=== PATIENT | male | born 2000 | race Caucasian/White ===

== ENCOUNTER 2020-07-01 08:59 | Outpatient (REF) | payer MEDICAID, SELFPAY | END 2020-07-01 09:00 | disposition home or self-care (01) | LOC: HO.LAB 08:59 | PROVIDERS: Visit Provider Internal Medicine | DX: Z20.828 Contact with and (suspected) exposure to other viral communicable diseases (principal) | CPT/HCPCS: C9803; U0003 ==

== ENCOUNTER 2020-12-27 21:18 | Emergency (ER) | payer MEDICAID, SELFPAY ==
--- NOTE | 2020-12-27 | ECG_ITS ---
Test Reason : DIZZINESS Blood Pressure : / mmHG Vent. Rate : 083 BPM Atrial Rate : 083 BPM P-R Int : 138 ms QRS Dur : 088 ms QT Int : 350 ms P-R-T Axes : 000 059 026 degrees QTc Int : 411 ms Normal sinus rhythm ST elevation, consider early repolarization, pericarditis, or injury Abnormal ECG When compared to the previous EKG of No significant changes seen Referred By: Generic ED Physician Electronically Signed By:Kali Posadas
--- NOTE | ~2020-12-27 | XR_ITS ---
EXAMINATION: XR CHEST CLINICAL INFORMATION: Chest pain COMPARISON: 07/28/2017 TECHNIQUE: Frontal view of the chest was obtained. FINDINGS: The lungs are clear with no focal consolidation. No evidence of pneumothorax, pulmonary edema, or pleural effusions. The cardiomediastinal silhouette is unremarkable. No acute osseous findings. XR/XR chest 1V IMPRESSION: No acute cardiopulmonary findings.
[2020-12-27 21:50] VITALS: BP 132/103; PULSE 100; RESP 18; TEMP 36.4; O2SAT 98; BMI 36.0
[2020-12-28 00:46] LABS: MANUAL DIFF FLAG NO
[2020-12-28 00:47] LABS: Basophils Absolute Auto 0.1 X10*3/uL (0.0-0.2); Basophils Percent Auto 0.5 % (0-2); Hematocrit 47.2 % (42-52); Hemoglobin 16.1 g/dl (14.0-18.0); Imm Gran Abs Auto 0.04 X10*3/uL (0.00-0.03); Imm Gran Pct Auto 0.3 % (0.0-0.4); Lymphocytes Absolute Auto 1.3 X10*3/uL (1.2-4.9); Lymphocytes Percent Auto 8.4 % (20-40); Mean Corpuscular HGB Conc 34.1 g/dl (31.0-36.0); Mean Corpuscular Volume 87.9 fL (80-98); Mean Platelet Volume 11.5 fL (9.4-12.4); Monocytes Absolute Auto 0.9 X10*3/uL (0.1-1.2); Neutrophils Absolute Auto 13.1 X10*3/uL (2.0-8.3); Neutrophils Percent Auto 84.8 % (45-73); Platelet Count 261 X10*3/uL (160-400); Red Blood Count 5.37 X10*6/uL (4.60-5.80); Red Cell Distribution Width 12.5 % (11.0-16.0); White Blood Count 15.4 X10*3/uL (4.8-10.8)
[2020-12-28 01:12] LABS: Anion Gap 18 (12-20); Blood Urea Nitrogen 17 mg/dL (9-16); Calcium 10.8 mg/dL (8.4-10.2); Carbon Dioxide 27 mmol/L (22-29); Chloride 95 mmol/L (96-108); Creatinine Clr Calc Pharmacy 82.6; Estimated Glomerular Filt Rate 44; Glucose Random 112 mg/dL (60-115); Potassium 4.1 mmol/L (3.3-5.1); Sodium 136 mmol/L (135-145)
[2020-12-28 01:13] LABS: Lipase 26 U/L (8-78)
[2020-12-28 01:19] LABS: Troponin-I High Sensitivity < 3.5 ng/L (<3.5-35.0)
[2020-12-28 01:33] VITALS: BP 123/65; PULSE 73; RESP 18; TEMP 37.2; O2SAT 99
[2020-12-28] MEDS: 0.9 % Sodium Chloride 1,000 ML 999 ML IV ×2 (01:47)
[2020-12-28] MEDS: ondansetron HCL 4 MG/2 ML VIAL IVPUSH (01:47)
[2020-12-28 02:05] LABS: Glucose Urine UA NEG (NEG); Leukocyte Esterase Urine NEG (NEG); Nitrite Urine NEG (NEG); Specific Gravity - Urine >= 1.030 (1.005-1.025); Urine Blood NEG (NEG); Urine Ketones 15 MG/DL (NEG); Urine Protein 2+ MG/DL (NEG-TRACE)
--- NOTE | 2020-12-28 02:11 | ED_ITS ---
HPI - Dizziness General Chief Complaint: Dizziness Stated Complaint: DIZZINESS Time Seen by Provider: 12/28/20 01:11 Source: patient Mode of arrival: ambulatory Limitations: no limitations History of Present Illness HPI Narrative: 20-year-old male who presents emergency department for evaluation of dizziness and near syncope. The patient states that he only ate breakfast in the morning and did not eat lunch or dinner. He then played 2 hours of basketball without any difficulty. He states that he was drinking water throughout the day. When he got home, he had to walk up 4 flights of stairs. He states that he got to the top of the stairs he felt dizzy and lightheaded as if he was going to pass out. He states that his vision became galo and then dark. He had nausea and vomited 4 times. He took a cold shower and felt slightly better but then is dizziness came back and got worse, therefore came to emergency department for evaluation. He states that has been experiencing cramping in his lower extremities. He denied headache, chest pain, shortness of breath, dyspnea on exertion, abdominal pain, changes bowel movements. Related Data Allergies Allergy/AdvReac Type Severity Reaction Status Date / Time No Known Allergies Allergy Verified 12/27/20 21:54 [No Known Allergies*] Review of Systems Review of Systems: Yes all other systems are reviewed and are negative [facility] Past Medical History [facility] Narrative: Past medical history: Asthma. Past surgical history: None. Social history: The patient denies tobacco, alcohol and drug use. Medical History (Updated 12/28/20 @ 03:09 by Silas Man MD) Asthma Social History Social History Advance Directives: No Advance Directives Information Provided: No Physical Exam Vital Signs: Vital Signs: Last Vital Signs Temp 98.9 F 12/28/20 01:33 Pulse 73 12/28/20 01:33 Resp 18 12/28/20 01:33 BP 123/65 12/28/20 01:33 Pulse Ox 99 12/28/20 01:33 Body Mass Index 36.0 Const: General: cooperative and healthy appearing Orientation/consciousness: oriented to person and oriented to place Limitations: no limitations HENMT: Head: Yes normal to inspection, Yes normocephalic and Yes atraumatic Ears: external ears normal General nose exam: Normal external nose present Face and sinus: Yes normal facial exam Mouth: Normal oral and palatal mucosa present Throat: Yes posterior oropharynx normal Eyes: Periorbital: periorbital findings normal Eyelids: Yes eyelids normal Conjunctivae: conjunctivae normal Sclerae: sclerae normal Corneas: corneas normal Pupils: Equal, round and reactive pupils present Direct Ophthalmoscopy: normal light reflex Neck: Neck: Yes full ROM, Yes no lymphadenopathy, Yes no meningeal signs, Yes trachea midline and Yes supple Chest: Chest palpation & inspection: normal inspection of the chest and normal palpation of entire chest wall Resp: Effort & Inspection: normal respiratory effort and able to speak in complete sentences Auscultation: clear to auscultation bilaterally Cardio: Rate: regular rate Rhythm: regular rhythm Heart sounds: S1 normal heart sound present, S2 normal heart sound present and no murmurs GI: Inspection: Yes normal to inspection Palpation (GI): Soft to palpation, nontender, no guarding, not rigid and No hepatosplenomegaly present : General: Yes no CVA tenderness Back/Spine/Pelvis: Back: no CVA tenderness Cervical Spine: normal cervical lordosis Thoracic/Lumbar Spine: thoracic and lumbar spine normal to inspection Skin: Lesions: no lesions Rashes: no rashes Wounds: no wounds Neuro: General: oriented to person, oriented to place and no meningeal signs Cranial nerves: Yes CN's II-XII intact bilaterally and Yes Equal, round and reactive pupils present Cognition (Neuro): normal cognition Motor exam (neuro): 5/5 motor strength present throughout Extrem: General: Yes normal to inspection and Yes full ROM Psych: Appearance: well kempt Mental Status: mental status grossly normal Speech and movement: Normal speech and movement present Affect: normal affect Attitude: cooperative Thought process: Normal thought process present Thought content: Normal thought content present Course Course Course Narrative: 20-year-old male who presents emergency department for evaluation of dizziness, near syncope and muscle cramping. The patient had very little food to eat throughout the day but was drinking fluids. He played 2 hours of basketball on afterwards developed dizziness with change in vision and near syncope. Initially revealed hypertension with a blood pressure of 132/103 but this improved to 120 3/65 without treatment. Vital signs were otherwise stable. Physical examination was unremarkable. Patient was ordered to get normal saline IV x2 L and Zofran 4 mg IV for his nausea and vomiting. 0217: [place] [address], BUN and creatinine were elevated at 17 and 1.95. CPK was elevated at 264. Troponin was below detectable limits. Twelve lead EKG was unremarkable. Chest x-ray was unremarkable. Patient's presentation is consistent with near syncope secondary to dehydration. The patient will be discharged home after he completes his 2 L of normal saline IV. 0306: Patient is feeling significantly better after completing 2 L of normal saline. He was given a sandwich to eat and change oral to drink . He was able to hold this down without any difficulty. The patient was discharged home. MDM - Dizziness Lab Data Result diagrams: 12/28/20 00:39 12/28/20 00:38 Labs: Lab Results 12/28/20 12/28/20 12/28/20 Range/Units 00:38 00:38 00:38 WBC (4.8-10.8) X10*3/uL RBC (4.60-5.80) X10*6/uL Hgb (14.0-18.0) g/dl Hct (42-52) % MCV (80-98) fL MCH (27.0-33.0) pg MCHC (31.0-36.0) g/dl RDW (11.0-16.0) % Plt Count (160-400) X10*3/uL MPV (9.4-12.4) fL Immature Gran % (Auto) (0.0-0.4) % Neut % (Auto) (45-73) % Lymph % (Auto) (20-40) % [place] % (Auto) (2-11) % Eos % (Auto) (0-4) % Baso % (Auto) (0-2) % Lymph # (Auto) (1.2-4.9) X10*3/uL [place] # (Auto) (0.1-1.2) X10*3/uL Eos # (Auto) (0.0-0.4) X10*3/uL Baso # (Auto) (0.0-0.2) X10*3/uL Abs Immat Gran (auto) (0.00-0.03) X10*3/uL Absolute Neuts (auto) (2.0-8.3) X10*3/uL Absolute Nucleated RBC (0.0-0.012) X10*3/uL Nucleated RBC % (auto) (0.0-0.2) /100WBC Hold Blue Top Sodium 136 (135-145) mmol/L Potassium 4.1 (3.3-5.1) mmol/L Chloride 95 L (96-108) mmol/L Carbon Dioxide 27 (22-29) mmol/L Anion Gap 18 (12-20) BUN 17 H (9-16) mg/dL Creatinine 1.95 H (0.5-1.4) mg/dL Estim Creat Clear Calc 82.6 Estimated GFR 44 Random Glucose 112 (60-115) mg/dL Calcium 10.8 H (8.4-10.2) mg/dL Total Creatine Kinase 264 H (38-174) U/L Troponin I High Sens < 3.5 (<3.5-35.0) ng/L Lipase 26 (8-78) U/L Urine Color Urine Appearance Urine pH (5.0-8.0) Ur Specific [place] (1.005-1.025) Urine Protein (NEG-TRACE) MG/DL Urine Glucose (UA) (NEG) MG/DL Urine Ketones (NEG) MG/DL Urine Blood (NEG) Urine Nitrite (NEG) Ur Leukocyte Esterase (NEG) Urine RBC (0) /HPF Urine WBC (0-4) /HPF Ur Squamous Epith Cells /LPF Calcium Oxalate Crystal /LPF Urine Bacteria /LPF Hyaline Casts /LPF Granular Casts /LPF Urine Mucus /LPF 12/28/20 12/28/20 12/28/20 Range/Units 00:39 00:39 01:53 WBC 15.4 H (4.8-10.8) X10*3/uL RBC 5.37 (4.60-5.80) X10*6/uL Hgb 16.1 (14.0-18.0) g/dl Hct 47.2 (42-52) % MCV 87.9 (80-98) fL MCH 30.0 (27.0-33.0) pg MCHC 34.1 (31.0-36.0) g/dl RDW 12.5 (11.0-16.0) % Plt Count 261 (160-400) X10*3/uL MPV 11.5 (9.4-12.4) fL Immature Gran % (Auto) 0.3 (0.0-0.4) % Neut % (Auto) 84.8 H (45-73) % Lymph % (Auto) 8.4 L (20-40) % [place] % (Auto) 6.0 (2-11) % Eos % (Auto) 0.0 (0-4) % Baso % (Auto) 0.5 (0-2) % Lymph # (Auto) 1.3 (1.2-4.9) X10*3/uL [place] # (Auto) 0.9 (0.1-1.2) X10*3/uL Eos # (Auto) 0.0 (0.0-0.4) X10*3/uL Baso # (Auto) 0.1 (0.0-0.2) X10*3/uL Abs Immat Gran (auto) 0.04 H (0.00-0.03) X10*3/uL Absolute Neuts (auto) 13.1 H (2.0-8.3) X10*3/uL Absolute Nucleated RBC 0.000 (0.0-0.012) X10*3/uL Nucleated RBC % (auto) 0.0 (0.0-0.2) /100WBC Hold Blue Top SEE NOTE Sodium (135-145) mmol/L Potassium (3.3-5.1) mmol/L Chloride (96-108) mmol/L Carbon Dioxide (22-29) mmol/L Anion Gap (12-20) BUN (9-16) mg/dL Creatinine (0.5-1.4) mg/dL Estim Creat Clear Calc Estimated GFR Random Glucose (60-115) mg/dL Calcium (8.4-10.2) mg/dL Total Creatine Kinase (38-174) U/L Troponin I High Sens (<3.5-35.0) ng/L Lipase (8-78) U/L Urine Color YELLOW Urine Appearance HAZY Urine pH 6.0 (5.0-8.0) Ur Specific [place] >= 1.030 H (1.005-1.025) Urine Protein 2+ H (NEG-TRACE) MG/DL Urine Glucose (UA) NEG (NEG) MG/DL Urine Ketones 15 (NEG) MG/DL Urine Blood NEG (NEG) Urine Nitrite NEG (NEG) Ur Leukocyte Esterase NEG (NEG) Urine RBC 1-4 (0) /HPF Urine WBC 5-9 H (0-4) /HPF Ur Squamous Epith Cells 2+ /LPF Calcium Oxalate Crystal 3+ /LPF Urine Bacteria 2+ /LPF Hyaline Casts 15-29 /LPF Granular Casts 5-9 /LPF Urine Mucus 2+ /LPF Discharge Plan Discharge Clinical Impression: Near syncope, Acute dehydration Patient Disposition: Home, Self-Care Instructions: Near Syncope (ED), Dehydration (ED) Additional Instructions: Your symptoms were caused by not eating enough food throughout the day, not drinking enough fluid throughout the day and exercising very hard. You should make sure that you eat 3 meals a day and that you drink plenty of fluid prior to exercising. Follow-up with your doctor in 2 days. Please return to the emergency department if your symptoms get worse or if you develop any symptoms that are concerning to you.
[2020-12-28 02:13] LABS: Appearance Urine HAZY; Color Urine YELLOW
[2020-12-28 02:14] LABS: Bacteria Urine 2+ /LPF; Calcium Oxalate Crystals Urine 3+ /LPF; Mucus Urine 2+ /LPF; Squamous Epithelial Cell Urine 2+ /LPF
== END 2020-12-28 03:37 | disposition home or self-care (01) ==
PROVIDERS: Emergency Provider Emergency Medicine Emergency Medical Services
DX: R55 Syncope and collapse (principal); E86.0 Dehydration; R11.2 Nausea with vomiting, unspecified
CPT/HCPCS: 36415; 71045; 80048; 81001; 82550; 83690; 84484; 85025; 93005; 96361; 96374; 99284; J2405

== ENCOUNTER 2021-07-18 09:44 | Outpatient (REF) | payer MEDICAID, SELFPAY ==
[2021-07-18 10:18] LABS: COVID-19 Test Positive (Negative); IDNOW Serial# 16C4AD1C
== END 2021-07-18 09:45 | disposition home or self-care (01) ==
LOC: HO.LAB 09:44
PROVIDERS: Visit Provider Internal Medicine
DX: Z20.822 Contact with and (suspected) exposure to COVID-19 (principal)
CPT/HCPCS: 36415; 87635; C9803

== ENCOUNTER 2023-03-11 20:17 | Emergency (ER) | payer OTHER, SELFPAY ==
--- NOTE | ~2023-03-11 | XR_ITS ---
EXAMINATION: LEFT ANKLE, LEFT FOOT CLINICAL INFORMATION: Twisted ankle and foot with pain COMPARISON: None available. TECHNIQUE: 3 views ankle, 3 views foot FINDINGS: The ankle mortise appears stable. No ankle fracture or dislocation is seen. Imaging of the foot shows no evidence of an acute fracture or dislocation. Tiny corticated bony density seen at the tip of the medial malleolus best imaged on the foot radiograph along with another bony density seen superiorly on the talus. XR/XR ankle LT min 3V IMPRESSION: No evidence of an acute injury. Incidental findings described above.
--- NOTE | ~2023-03-11 | XR_ITS ---
EXAMINATION: LEFT ANKLE, LEFT FOOT CLINICAL INFORMATION: Twisted ankle and foot with pain COMPARISON: None available. TECHNIQUE: 3 views ankle, 3 views foot FINDINGS: The ankle mortise appears stable. No ankle fracture or dislocation is seen. Imaging of the foot shows no evidence of an acute fracture or dislocation. Tiny corticated bony density seen at the tip of the medial malleolus best imaged on the foot radiograph along with another bony density seen superiorly on the talus. XR/XR foot LT min 3V IMPRESSION: No evidence of an acute injury. Incidental findings described above.
[2023-03-11 20:22] VITALS: BP 113/77; PULSE 107; RESP 18; TEMP 36.6; O2SAT 97; BMI 35.9
--- NOTE | 2023-03-11 20:23 | ED_ITS ---
HPI - Extremity Injury (Lower) General Chief Complaint: Extremity Injury, Lower Stated Complaint: left ankle pain work inj Time Seen by Provider: 03/11/23 20:40 Source: patient Mode of arrival: ambulatory History of Present Illness HPI Narrative: 22-year-old male presents with left ankle pain after he reports injuring it approximately 1 week ago playing basketball and then twisted it at work again today when he tripped over something while unloading a Pallet. Patient states he is able to bear weight. Related Data Allergies Allergy/AdvReac Type Severity Reaction Status Date / Time No Known Allergies Allergy Verified 03/11/23 20:26 [No Known Allergies*] Review of Systems Review of Systems: Pertinent positives and negatives as stated in HPI PMFSH Past Medical History Source: nursing notes reviewed Medical History Asthma Social History Social History Advance Directives: No Advance Directives Information Provided: Yes Physical Exam Vital Signs: Vital Signs: Last Vital Signs Temp 98.2 F 03/11/23 20:51 Pulse 90 03/11/23 20:51 Resp 16 03/11/23 20:51 BP 130/85 03/11/23 20:51 Pulse Ox 98 03/11/23 20:51 O2 Del Method Room Air 03/11/23 20:51 BMI result Body Mass Index 35.9 VITAL SIGNS: Reviewed. GENERAL: Well developed, well nourished, in no acute distress. HEAD: Normocephalic/atraumatic EYES: PERRLA, EOMI LUNGS: Normal breath sounds. No adventitious sounds or accessory muscle use. CARDIOVASCULAR: Regular rate and rhythm without noted murmurs ABDOMEN: Soft, non-tender, non-distended with bowel sounds. MUSCULOSKELETAL: No tenderness, deformities, or effusions noted on gross inspection. EXTREMITIES: No cyanosis, clubbing or edema. LEFT ANKLE: There is mild swelling to the anteromedial aspect of the left ankle, foot is warm there is good capillary refill and palpable DP/PT. There is no obvious deformity, no midfoot tenderness and full range of motion toes. SKIN: Inspection of the skin reveals no rashes NEUROLOGIC: Alert and oriented x 4. Strength and sensation to light touch were grossly intact x 4. Course Course Course Narrative: RME: 22yo M w/no sig PMHx c/o L ankle pain s/p twisting at work today. Admits was packing pallet and tripped. Also reports twisting this weekend playing basketball L proximal foot/ankle swelling & ttp >lateral mall. NV intact XRs ordered Full HPI, ROS and PE to be performed by primary ED provider. Medical Decision Making Medical Decision Making MDM Narrative: 22-year-old male with history and clinical presentation most consistent with sprain, mild in nature, I have low clinical suspicion for fracture or dislocation which was further corroborated by imaging studies of the left lower extremity which was negative for fracture or dislocation otherwise my interpretation is in agreement with radiology's impression. Place an Cory wrap on patient's ankle and discharged him home. Differential Diagnosis Differential Diagnoses: The differential diagnosis associated with the presentation includes Please see the discussion above Radiology Impression Discussion of test interpretation with radiology: I have reviewed the radi ologist's reading. Radiologist Impression: Please see the discussion above Discharge Plan Discharge Clinical Impression: Ankle sprain Patient Disposition: Home, Self-Care Instructions: Ankle Sprain (ED), How to Use an Elastic Bandage (ED), R.I.C.E. Treatment (ED) Additional Instructions: 1. Recommend Tylenol and ibuprofen as needed for pain control. 2. Recommend ice for 10-15 minutes, apply to unexposed skin, 3 to 4 times a day as possible. 3. Leave the Cory wrap in place while walking. 4. Follow-up with your primary care provider in the next 1-2 days Return to the ER for any worsening symptoms. Referrals: Elise Milian MD [Primary Care Provider] -
[2023-03-11 20:51] VITALS: BP 130/85; PULSE 90; RESP 16; TEMP 36.8; O2SAT 98
--- NOTE | 2023-03-11 21:20 | MHC.EDTECH ---
OSCAR WRAP APPLE TO LEFT ANKLE .
== END 2023-03-11 21:52 | disposition home or self-care (01) ==
PROVIDERS: Emergency Provider Student in an Organized Health Care Education/Training Program; PCP Internal Medicine
DX: S93.402A Sprain of unspecified ligament of left ankle, initial encounter (principal); X50.1XXA Overexertion from prolonged static or awkward postures, initial encounter; Y93.89 Activity, other specified; Y92.9 Unspecified place or not applicable; Y99.0 Civilian activity done for income or pay
CPT/HCPCS: 73610; 73630; 99283

== ENCOUNTER 2023-06-12 11:24 | Outpatient (AMB) | payer OTHER, SELFPAY ==
--- NOTE | 2023-06-12 11:28 | MHC.OFFWIV ---
Intake Vital Signs 06/12/23 11:29 Height 6 ft 2 in Weight 130.181 kg BMI 36.8 BP 128/68 Blood Pressure Location Lt brachial Position Sitting Pulse 78 Pulse Source Pulse Oximeter Temp 97.8 F Temp Source Temporal Artery Scan Pulse Oximetry (%) 97 Oxygen Delivery Method Room Air Intake Visit Reasons: EP, sleep apnea, tiredness Intake Note: pt is here for c/o sleep apnea and tiredness Patient Tobacco Use Status: Never used Tobacco Allergies No Known Allergies [No Known Allergies*] Allergy (Verified 06/12/23 11:29) Do you need a note to return to daycare/school/sports/work: Yes HPI HPI Comments History of Present Illness Details 1143 22-year-old male history of obesity presents to the Urgent Care requesting treatment /screening for sleep apnea, patient does not have a PCP at this time. Reports this has been going on for years. No acute complaints today. No chest pain, shortness of breath, fevers, chills, cough. Physical exam benign. Likely sleep apnea secondary to obesity. Unlikely acute viral illness, pulmonary embolism, ACS. Patient was set up with an appointment with a primary care provider Beto this Saturday. Plan- dc w/ pcp follow up Nothing to be done about this in an acute setting and in urgent care. Patient to follow-up with PCP. Hemodynamically stable. Saturating well on room air. No respiratory complaints. Educated patient on diagnosis and treatment plan, answered all question, patient verbalizes understanding. At this time patient will be discharged home, advised to return with new or worsening symptoms. Educated on worrisome signs and symptoms and when to return. At this time I feel comfortable discharge home. [facility] Medical History Asthma Social History Patient Tobacco Use Status: Never used Tobacco Review of Systems Const Details: Constitutional : No Weight loss, No Fever, No Chills, No Fatigue, No Malaise ENT/Mouth : No sore throat, No Rhinorrhea Eyes: No Eye Pain, No Swelling, No Redness Cardiovascular : No Chest Pain, No SOB, No Dyspnea on Exertion, No Orthopnea, No Edema, No Palpitations Respiratory : No Cough, No Sputum, No Wheezing Gastrointestinal : No Nausea, No Vomiting, No Diarrhea, No Constipation, No abdominal Pain, No Hematochezia, No Melena Genitourinary : No Dysuria, No Urinary Frequency, No Hematuria, Musculoskeletal : No joint pain, No Myalgias, No Joint Swelling Skin : No Skin Lesions, No rash Neuro : No Weakness, No Numbness, No Dizziness, No Headache Psych : No Anxiety/Panic, No Depressio All other systems reviewed and are negative All systems reviewed & are unremarkable except as noted in HPI and below Physical Exam Vital Signs: Last Vital Signs Temp 97.8 F 06/12/23 11:29 Pulse 78 06/12/23 11:29 BP 128/68 06/12/23 11:29 Pulse Ox 97 06/12/23 11:29 Oxygen Delivery Method Room Air 06/12/23 11:29 BMI result Body Mass Index 36.8 vss Appearance: Alert.? Oriented X3.? No acute distress.? Head: Normocephalic, atraumatic, no step-offs or deformities Eyes: Pupils equal, round and reactive to light.? ENT: Pharynx normal.? Neck: Normal inspection.? Neck supple.? CVS: Normal heart rate and rhythm.? Pulses normal.? Respiratory: No respiratory distress.? Breath sounds normal.? Abdomen: Soft and nontender.? Skin: Skin warm and dry.? Normal skin color.? Normal skin turgor.? Extremities: No lower extremity edema.? No calf ttp. 5/5 strength to bilateral upper and lower extremities Neuro: Oriented X 3.? No motor deficit.? No sensory deficit. CN 2-12 intact Assessment & Plan Assessment & Plan (1) Obesity: Code(s): E66.9 - Obesity, unspecified Plan Take your medications as prescribed. If you were prescribed antibiotics today, it is important that you take your medication to their entirety, do not skip any doses, do not finish them early. Follow-up with your primary care provider this week. Return to the emergency department with new or worsening symptoms. Such as fevers, chills, chest pain, shortness of breath, nausea, vomiting, dizziness, headache, vision changes, lethargy In case of emergency call 911 Coding Level of Care Code Est Pt Level 3 (90055) Diagnoses Obesity E66.9
[2023-06-12 11:29] VITALS: BP 128/68; PULSE 78; TEMP 36.6; O2SAT 97; BMI 36.8
== END 2023-06-12 12:15 | disposition home or self-care (01) ==
PROVIDERS: PCP Nurse Practitioner Primary Care; Visit Provider Physician Assistant
DX: E66.9 Obesity, unspecified (principal); Z68.36 Body mass index [BMI] 36.0-36.9, adult
CPT/HCPCS: 99213

== ENCOUNTER 2023-06-14 12:24 | Outpatient (AMB) | payer OTHER, SELFPAY ==
--- NOTE | 2023-06-14 12:27 | A.OFFPC_ITS ---
Vital Signs 06/14/23 12:29 06/14/23 12:38 Height 6 ft 2 in Weight 289 lb BMI 37.1 BP 122/66 Blood Pressure Location Rt brachial Position Sitting Pulse 107 H 90 Pulse Source Pulse Oximeter Palpation Pulse Oximetry (%) 97 Oxygen Delivery Method Room Air Intake Visit Reasons: Est Care/Request Annual PE Intake Note: Pt is here today to est care/PE Allergies No Known Allergies [No Known Allergies*] Allergy (Verified 06/14/23 12:27) Medication List - Last Reconciled 06/14/23 by HETAL Hunter No Known Home Meds Tobacco use date assessed: 06/14/23 Dental Screening Dental Screen Date: 06/14/23 Did you have a dental visit in the last 12 months?: No Was dental information given to patient?: Patient has dentist HPI HPI Comments History of Present Illness Details The patient is a 22-year-old male here to establish care, and have a physical exam. He has a chief complaint of feeling tired in the morning. His girlfriend was present during the exam and states that he sleeps very restlessly, and it appears as though he is trying to catch his breath at times. He has a past medical history significant for childhood asthma. He currently has a BMI of 37.1. No other complaints were offered at this time. [facility] Medical History (Updated 06/14/23 @ 13:17 by HETAL Hunter) Nocturnal cough with wheeze Encounter for routine adult physical exam with abnormal findings Asthma Family History (Updated 06/14/23 @ 12:44 by HETAL Hunter) Father Diabetes type 2, controlled Mother Diabetes type 2, controlled Social History Housing: Apartment Patient Tobacco Use Status: Current everyday Tobacco user e-Cigarette/Vaping Use: Never Used service: No Current occupational status: unemployed Cognitive needs: No Hearing needs: No Vision needs: No Questionnaire Thrive Questionnaire Date Thrive assessed: 06/14/23 I am a: Patient What is your living situation today?: I have a steady place to live Within the past 12 months, did the food you bought not last and you didn't have the money to get more?: Never true Within the past 12 months, did you worry whether your food would run out before you got money to buy more?: Never true Do you have trouble paying for medicines?: No Do you have trouble getting transportation to medical appointments?: No Do you have trouble paying your heating and electricity bill?: Yes Do you have trouble taking care of your child, family member or friend?: No Do you have trouble with day-to-day activities such as bathing, preparing meals, shopping, managing finances, etc.?: No Are you currently unemployed and looking for a job?: Yes Are you interested in more education?: No Please select the resources that you would like help with: None Currently or been in a relationship where the following occur: no concerns reported AUDIT C Alcohol Use Questionnaire (AUDIT-C) 1. How often do you have a drink containing alcohol?: Never Total Score: 0 SANDIE-7 AMB Questionnaire SANDIE-7 Date SANDIE - 7 assessed: 06/14/23 Feeling nervous, anxious, or on edge: 1 = Several days Not being able to stop or control worryin = More than half the days Worrying too much about different things: 3 = Nearly every day Trouble relaxin = More than half the days Being so restless that it is hard to sit still: 3 = Nearly every day Becoming easily annoyed or irritable: 2 = More than half the days Feeling afraid as if something awful might happen: 3 = Nearly every day Total SANDIE-7 score (0-4 normal; 5-9 mild; 10-14 moderate; 15-21 severe): 16 Source: Developed by Drs. Tom Bae, Justa Maza, Jatin Willis and colleagues, with an educational ben from [employer]. SANDIE-7 Assessment Billing SANDIE-7 Assessment Tool: SANDIE-7 Assessment 12676 Review of Systems Const Details: Constitutional : No Weight loss, No Fever, No Chills, No Fatigue, No malaise. Admits feeling tired in the mornings even after good sleep. ENT/Mouth : No sore throat, No Rhinorrhea Eyes: No Eye Pain, No Swelling, No Redness Cardiovascular : No Chest Pain, No SOB, No Dyspnea on Exertion, No Orthopnea, No Edema, No Palpitations Respiratory : No Cough, No Sputum, No Wheezing Gastrointestinal : No Nausea, No Vomiting, No Diarrhea, No Constipation, No abdominal Pain, No Hematochezia, No Melena Genitourinary : No Dysuria, No Urinary Frequency, No Hematuria, Musculoskeletal : No joint pain, No Myalgias, No Joint Swelling Skin : No Skin Lesions, No rash Neuro : No Weakness, No Numbness, No Dizziness, No Headache Psych : No Anxiety/Panic, No Depression Heme/Lymph: No Bruising, No Bleeding,No Lymphadenopathy Endocrine : No Polyuria, No Polydipsia All other systems reviewed and are negative All systems reviewed & are unremarkable except as noted in HPI and below Physical exam (Primary Care) Vital Signs: Last Vital Signs Pulse 90 06/14/23 12:38 BP 122/66 06/14/23 12:29 Pulse Ox 97 06/14/23 12:29 Oxygen Delivery Method Room Air 06/14/23 12:29 Care Plan Goal for BP management: Patient's vital signs have been reviewed and are stable. BMI result Body Mass Index 37.1 Discussed with patient, given that both biological parents have diabetes type 2, is imperative that he improving focus on his diet. BMI Assessment/Plan discussion: High BMI High, discussed plan: lifestyle, dietary and physical activity Tobacco/Smoking Status: Tobacco use Status Tobacco use date assessed 06/14/23 06/14/23 12:34 Patient Tobacco Use Status Current everyday Tobacco 06/14/23 12:34 e-Cigarette/Vaping Use Never Used 06/14/23 12:34 Are you ready to quit: No Tobacco cessation counseling provided: No Currently or been in a relationship where the following occur: no concerns reported Const Other: Appearance: Alert.? Oriented X3.? No acute distress.? Head: Normocephalic, atraumatic, no step-offs or deformities Eyes: Pupils equal, round and reactive to light.? ENT: Pharynx normal. Clear Nasal Discharge. TM Visible, intact and pearly galo. ? Neck: Normal inspection.? Neck supple. No Lymphadenopahty. ? CVS: Normal heart rate and rhythm.? Pulses normal.? Respiratory: No respiratory distress.? Breath sounds normal.? Abdomen: Soft and nontender.? Skin: Skin warm and dry.? Normal skin color.? Normal skin turgor.? Extremities: No lower extremity edema.? No calf ttp. 5/5 strength to bilateral upper and lower extremities Back: No midline tenderness, no C-spine tenderness, full range of motion, no CVA tenderness bilaterally Neuro: Oriented X 3.? No motor deficit.? No sensory deficit. CN 2-12 intact General: cooperative Nutritional Appearance: overweight Limitations: no limitations Results Reviewed Results Reviewed: Will order labs in review with patient. Assessment and Plan Assessment & Plan (1) Encounter for routine adult physical exam with abnormal findings: Comment: Patient will have labs drawn today which will include CBC, CMP, lipid profile, TSH, T4, UA. Will follow-up with patient with results. Patient will follow-up in 1 year. Code(s): Z00. - Encounter for general adult medical examination with abnormal findings (2) Nocturnal cough with wheeze: Comment: Will order referral for sleep medicine, to be evaluated for obstructive sleep apnea, given the patient's history of childhood asthma, behaviors while sleeping, and elevated BMI. The patient will also be sent for pulmonary function test with methacholine challenge. Will prescribe albuterol inhaler to be taken as directed and as needed, will prescribe Flonase. Code(s): R05.8 - Other specified cough; R06.2 - Wheezing Orders: Orders PFT pulmonary function test Today R05.8 - Other specified cough, R06.2 - Wheezing Comprehensive Met. Panel Today Z00. - Encounter for general adult medical examination with abnormal findings TSH reflex Free T4 Today Z00.01 - Encounter for general adult medical examina tion with abnormal findings RT pft w methacholine Today R05.8 - Other specified cough, R06.2 - Wheezing Complete Blood Count Auto Diff Today Z00.01 - Encounter for general adult medical examination with abnormal findings UA CC w/rflx Micro + Cult Today Z00.01 - Encounter for general adult medical examination with abnormal findings Lipid Panel Today Z00.01 - Encounter for general adult medical examination with abnormal findings Referrals Sleep Medicine Referral R05.8 - Other specified cough, R06.2 - Wheezing Medications: New albuterol sulfate 90 mcg/actuation 2 puffs inhalation Q6H PRN 8.5 grams 0RF shortness of breath or wheezing fluticasone propionate 50 mcg/actuation (Flonase Allergy Relief) administer into each nostril 2 sprays intranasal DAILY 16 grams 0RF Review Flu Vaccine not done: patient reason Coding Level of Care Code New Pt Prev Care 18-39yr(51780 Diagnoses Encounter for routine adult physical exam with abnormal findings Z00.01 Nocturnal cough with wheeze R05.8; R06.2 Additional Codes SANDIE-7 Assessment Billing - SANDIE-7 Assessment Tool: SANDIE-7 Assessment 25797 ([id number]) Time Spent (min) 30
[2023-06-14 12:29] VITALS: BP 122/66; PULSE 107; O2SAT 97; BMI 37.1
[2023-06-14 12:38] VITALS: PULSE 90
== END 2023-06-14 13:52 | disposition home or self-care (01) ==
PROVIDERS: PCP Nurse Practitioner Primary Care; Visit Provider Nurse Practitioner Primary Care
DX: Z00.01 Encounter for general adult medical examination with abnormal findings (principal); R05.8 Other specified cough; R06.2 Wheezing
CPT/HCPCS: 99213; 99395

== ENCOUNTER 2023-06-24 10:10 | Outpatient (REF) | payer OTHER, SELFPAY ==
[2023-06-24 10:41] LABS: MANUAL DIFF FLAG NO
[2023-06-24 11:06] LABS: Basophils Absolute Auto 0.1 X10*3/uL (0.0-0.2); Basophils Percent Auto 0.7 % (0-2); Eosinophils Absolute Auto 0.2 X10*3/uL (0.0-0.4); Eosinophils Percent Auto 2.6 % (0-4); Hematocrit 47.1 % (42.0-52.0); Hemoglobin 15.3 g/dl (14.0-18.0); Imm Gran Abs Auto 0.02 X10*3/uL (0.00-0.03); Imm Gran Pct Auto 0.2 % (0.0-0.4); Lymphocytes Absolute Auto 2.6 X10*3/uL (1.2-4.9); Lymphocytes Percent Auto 30.6 % (20-40); Mean Corpuscular HGB Conc 32.5 g/dl (31.0-36.0); Mean Corpuscular Hemoglobin 29.5 pg (27.0-33.0); Mean Corpuscular Volume 90.9 fL (80.0-98.0); Mean Platelet Volume 11.4 fL (9.4-12.4); Monocytes Absolute Auto 0.6 X10*3/uL (0.1-1.2); Monocytes Percent Auto 6.6 % (2-11); Neutrophils Percent Auto 59.3 % (45-73); Platelet Count 233 X10*3/uL (160-400); Red Blood Count 5.18 X10*6/uL (4.60-5.80); Red Cell Distribution Width 13.2 % (11.0-16.0); White Blood Count 8.4 X10*3/uL (4.8-10.8)
[2023-06-24 11:39] LABS: Alanine Aminotransferase 38 U/L (0-40); Albumin Level 4.1 g/dL (3.5-5.0); Alkaline Phosphatase 71 U/L (39-117); Anion Gap 10 (12-20); Aspartate Amino Transferase 23 U/L (5-37); Bilirubin Total 0.3 mg/dL (0.0-1.0); Blood Urea Nitrogen 10 mg/dL (9-16); Calcium 9.4 mg/dL (8.4-10.2); Carbon Dioxide 31 mmol/L (22-29); Chloride 101 mmol/L (96-108); Cholesterol 141 mg/dL (<200); Estimated Glomerular Filt Rate > 60; Glucose Random 103 mg/dL (60-115); HDL Cholesterol 31 mg/dL (>40); LDL Cholesterol Calculated 80 mg/dL (<100); Sodium 138 mmol/L (135-145); Triglycerides 154 mg/dL (<150)
[2023-06-24 11:47] LABS: Appearance Urine Cloudy; Color Urine Yellow; Glucose Urine UA Negative (Negative); Leukocyte Esterase Urine Negative (Negative); Nitrite Urine Negative (Negative); Urine Blood Negative (Negative); Urine Ketones Negative (Negative); Urine Protein Negative (Neg-Trace)
[2023-06-24 11:57] LABS: TSH reflex Free T4 1.62 uIU/mL (0.32-4.0)
== END 2023-06-24 10:11 | disposition home or self-care (01) ==
LOC: HO.LAB 10:10
PROVIDERS: PCP Nurse Practitioner Primary Care; Visit Provider Nurse Practitioner Primary Care
DX: Z00.01 Encounter for general adult medical examination with abnormal findings (principal)
CPT/HCPCS: 36415; 80053; 80061; 81003; 84443; 85025

== ENCOUNTER 2023-06-26 10:49 | Outpatient (AMB) | payer OTHER, SELFPAY ==
--- NOTE | 2023-06-26 10:55 | A.OFFVIS_ITS ---
Intake Vital Signs 06/26/23 10:59 Height 6 ft 2 in Weight 287 lb BMI 36.8 BP 120/82 Blood Pressure Location Lt brachial Position Sitting Pulse 95 Pulse Source Pulse Oximeter Pulse Oximetry (%) 95 Oxygen Delivery Method Room Air Intake Visit Reasons: INP-Cough/Wheezing/Sleep-Confirmed [employer] Operations Supervisor Required: No Allergies No Known Allergies [No Known Allergies*] Allergy (Verified 06/26/23 10:58) HPI HPI Comments History of Present Illness Details 22 y/o male patient presents for new in- person visit to manage sleep apnea. He was diagnosed with severe degree of sleep apnea, about 3-4 years ago. He was told that he is getting CPAP but he never had a CPAP. He gained 40-50 lb since the last sleep study. He sleeps at least 8 hrs, but he feels he did not sleep at all. Pt has non refreshing sleep with daytime sleepiness, takes a 3 hrs nap daily. He snores, wakes up with gasping and heart burn. He feels chocking, and needs to drink water, too. He smokes marijuana daily. Sleep questionnaire: Have you ever been diagnosed with a sleep disorder? Yes, severe degree of sleep apnea. Have you ever had a sleep study in the past? Yes. Have you ever been treated for a sleep disorder? No. Do you take medications for a sleep disorder? No. Do you snore? Yes. Do you wake up gasping at night? Yes. Do you have episodes of apneas? Yes. If yes, are they witnessed? Yes. Do you have episodes of nocturnal chest pain or dyspnea? Yes. Do you have difficulty initiating sleep? No. Do you have difficulty maintaining sleep? No. Do you wake up tired? Yes. Do you have headaches upon awakening? Yes. Do you wake up with dry mouth or throat? Yes. Do you have GERD? Yes. Do you have nocturia? Yes. Do you have nocturnal leg cramps? No. Do you have symptoms of restless legs? No. Do you act out your dreams? No. Sleep hygiene questionnaire: What is your usual sleep routine? Usual bedtime is at 10 pm; Usual wake up time is at 8 am. Do you take naps? Yes, daily, three hours. Is your sleep environment cool, dark, and quiet? Yes. Do you exercise? No. Do you take caffeine or other stimulants? Coffee and soda. Do you use electronics in bed? Yes. What is your work schedule? N/A. Hypersomnolence questionnaire: Do you have daytime tiredness or fatigue? Yes. Do you easily fall asleep when inactive? Yes. Have you ever had episodes of sudden weakness? No. Have you ever had episodes of sudden weakness associated with strong emotions? No. PFSH Medical History (Updated 06/26/23 @ 11:17 by Darrel Shay CNP) Nocturnal cough with wheeze Encounter for routine adult physical exam with abnormal findings Asthma Family History (Updated 06/14/23 @ 12:44 by HETAL Hunter) Father Diabetes type 2, controlled Mother Diabetes type 2, controlled Social History (Updated 06/26/23 @ 10:59 by Chula Bueno [facility]) Housing: Apartment Alcohol intake: never Patient Tobacco Use Status: Current everyday Tobacco user e-Cigarette/Vaping Use: Never Used Substance Use Type: Marijuana service: No Current occupational status: unemployed Cognitive needs: No Hearing needs: No Vision needs: No Review of Systems Const All systems reviewed & are unremarkable except as noted in HPI and below ENT Reports Normal hearing present Neuro Reports Normal hearing present Physical Exam Vital Signs: Last Vital Signs Pulse 95 06/26/23 10:59 BP 120/82 06/26/23 10:59 Pulse Ox 95 06/26/23 10:59 Oxygen Delivery Method Room Air 06/26/23 10:59 Const General: cooperative and tired appearing Nutritional Appearance: obese Orientation/consciousness: patient oriented x3 Neck Neck: Yes full ROM and Yes supple Resp Effort & Inspection: normal respiratory effort and able to speak in complete sentences Neuro General: patient oriented x3, gait normal and moves all extremities Cranial nerves: Yes Bilaterally intact EOM present, Yes Normal facial strength present, Yes Midline tongue present, Yes Normal hearing present, Yes Ability to bilaterally rotate head present and Yes Ability to bilaterally elevate shoulders present Cognition (Neuro): normal cognition Gait exam (Neuro): Normal gait present Motor exam (neuro): 5/5 motor strength present throughout, Pronator motor function not present and no tremor noted Psych Appearance: grossly normal Mental Status: mental status grossly normal Speech and movement: Normal speech and movement present Affect: normal affect Attitude: cooperative Assessment & Plan Assessment & Plan (1) Obesity: Code(s): E66.9 - Obesity, unspecified (2) Excessive daytime sleepiness: Code(s): G47.19 - Other hypersomnia (3) Sleep apnea: Comment: hx of severe degree of sleep apnea. Code(s): G47.30 - Sleep apnea, unspecified (4) Nocturnal cough with wheeze: Comment: Will order referral for sleep medicine, to be evaluated for obstructive sleep apnea, given the patient's history of childhood asthma, behaviors while sleeping, and elevated BMI. The patient will also be sent for pulmonary function test with methacholine challenge. Will prescribe albuterol inhaler to be taken as directed and as needed, will prescribe Flonase. Code(s): R05.8 - Other specified cough; R06.2 - Wheezing Plan Pt is advised to undergo in lab sleep study to assess for sleep apnea and titration study if he needs it. Will f/u with pt after study to discuss results and appropriate treatment options. Wt reduction advised. Advised patient to reduce mariuana smoking. Sleep hygiene education provided. Pt to call with any worsening concerns or questions. Orders: Orders RT PSG in-lab sleep titration Today E66.9 - Obesity, unspecified, G47.19 - Other hypersomnia, G47.30 - Sleep apnea, unspecified, R05.8 - Other specified cough, R06.2 - Wheezing Coding Level of Care Code New Pt Level 3 (99529) Diagnoses Obesity E66.9 Excessive daytime sleepiness G47.19 Sleep apnea G47.30 Nocturnal cough with wheeze R05.8; R06.2
[2023-06-26 10:59] VITALS: BP 120/82; PULSE 95; O2SAT 95; BMI 36.8
== END 2023-06-26 11:20 | disposition home or self-care (01) ==
PROVIDERS: PCP Nurse Practitioner Primary Care; Visit Provider Nurse Practitioner Family
DX: E66.9 Obesity, unspecified (principal); G47.19 Other hypersomnia; G47.30 Sleep apnea, unspecified; R05.8 Other specified cough; R06.2 Wheezing
CPT/HCPCS: 99203

== ENCOUNTER → 2023-06-26 10:49 | Outpatient (BNVA) | payer OTHER, SELFPAY | PROVIDERS: PCP Nurse Practitioner Primary Care; Visit Provider Nurse Practitioner Family | DX: G47.19 Other hypersomnia (principal); G47.30 Sleep apnea, unspecified; R05.8 Other specified cough; R06.2 Wheezing; E66.9 Obesity, unspecified; Z68.36 Body mass index [BMI] 36.0-36.9, adult | CPT/HCPCS: 99202 ==

== ENCOUNTER → 2023-07-24 20:30 | Outpatient (REF) | payer OTHER, SELFPAY | LOC: HO.SL 20:30 | PROVIDERS: PCP Nurse Practitioner Primary Care; Visit Provider Nurse Practitioner Family | DX: G47.33 Obstructive sleep apnea (adult) (pediatric) (principal); R05.8 Other specified cough; R06.2 Wheezing; G47.19 Other hypersomnia; E66.9 Obesity, unspecified | CPT/HCPCS: 95811 ==

== ENCOUNTER → 2023-07-24 23:40 | Outpatient (BNV) | payer OTHER, SELFPAY | PROVIDERS: PCP Nurse Practitioner Primary Care; Visit Provider Psychiatry & Neurology Neurology | DX: G47.33 Obstructive sleep apnea (adult) (pediatric) (principal) | CPT/HCPCS: 95811 ==

== ENCOUNTER 2023-10-07 12:18 | Emergency (ER) | payer OTHER, SELFPAY ==
--- NOTE | ~2023-10-07 | US_ITS ---
EXAMINATION: US ABDOMEN LIMITED CLINICAL INFORMATION: Epigastric pain. COMPARISON: None available. TECHNIQUE: Real-time imaging of the right upper quadrant abdominal viscera. FINDINGS: PANCREAS: Tail obscured. LIVER: The liver is normal in size. The liver contour is normal. There is diffuse increased liver parenchymal echogenicity, consistent with hepatic steatosis. No definite focal lesion is seen, but evaluation is limited due to poor sound beam penetration through the coarse echogenic liver parenchyma. There is no intrahepatic biliary duct dilatation seen. GALLBLADDER: The gallbladder is physiologically distended without evidence of stones, sludge, polyps, wall thickening or pericholecystic fluid. Negative sonographic Ronquillo's sign. COMMON BILE DUCT: Normal in caliber measuring 0.3 cm in diameter. RIGHT KIDNEY: No hydronephrosis. No renal calculi. Midpole cyst measures 2.6 x 2.2 x 2.8 cm. No further routine follow-up is needed. The kidney measures 11.7 cm in maximum dimension. FREE FLUID: None. US/US abdomen limited IMPRESSION: Hepatic steatosis.
[2023-10-07 12:44] VITALS: BP 149/83; PULSE 112; RESP 18; TEMP 36.6; O2SAT 98; BMI 36.6
--- NOTE | 2023-10-07 12:48 | ED.GENADULT ---
HPI - General Adult General Chief complaint: Abdominal Pain Stated complaint: vomiting Time Seen by Provider: 10/07/23 21:14 Source: patient Mode of arrival: ambulatory History of Present Illness HPI narrative: 23-year-old male with history of asthma comes in with onset of multiple episodes of nausea, vomiting, diarrhea that have all stopped since 1400 this afternoon without fever, chills and no dysuria or shortness of breath/chest pain. Related Data Previous Rx's Medication Instructions Recorded albuterol sulfate 90 mcg/actuation 2 puff inhalation Q6H PRN 06/14/23 aerosol inhaler shortness of breath or wheezing #8.5 grams fluticasone propionate 50 2 spray intranasal DAILY #16 grams 06/14/23 mcg/actuation nasal spray,suspension (Flonase Allergy Relief) ondansetron 4 mg disintegrating 8 mg (2 x 4 mg) PO Q8H PRN nausea 10/07/23 tablet and vomiting 5 days #7 tabs Allergies Allergy/AdvReac Type Severity Reaction Status Date / Time No Known Allergies Allergy Verified 10/07/23 19:21 [No Known Allergies*] Review of Systems Review of Systems: Pertinent positives and negatives as stated in HPI [facility] Past Medical History Source: nursing notes reviewed Medical History Nocturnal cough with wheeze Encounter for routine adult physical exam with abnormal findings Asthma Family History Family History Father Diabetes type 2, controlled Mother Diabetes type 2, controlled Social History Social History Housing: Apartment Alcohol intake: never Patient Tobacco Use Status: Current everyday Tobacco user e-Cigarette/Vaping Use: Never Used Substance Use Type: Marijuana Advance Directives: No service: No Current occupational status: unemployed Cognitive needs: No Hearing needs: No Vision needs: No Physical Exam ED Vital Signs: Vital Signs - 24 hr 10/07/23 12:44 10/07/23 21:39 Temperature 98 F 98.6 F Pulse Rate 112 H 78 Respiratory Rate 18 15 Blood Pressure 149/83 H 131/81 Pulse Oximetry 98 97 Oxygen Delivery Method Room Air BMI result Body Mass Index 36.6 VITAL SIGNS: Reviewed. GENERAL: Well developed, well nourished, in no acute distress. HEAD: Normocephalic/atraumatic EYES: PERRLA, EOMI EARS: Ext canals without abnormality, TMs non-bulging and non-erythematous NOSE: Nares patent bilateral OROPHARYNX: no oral lesions noted, posterior pharynx clear and non-erythematous without noted tonsillar enlargement/erythema/exudates NECK: Supple, no adenopathy LUNGS: Normal breath sounds. No adventitious sounds or accessory muscle use. SpO2<98> CARDIOVASCULAR: Regular rate and rhythm without noted murmurs ABDOMEN: Soft, non-tender, non-distended with bowel sounds. MUSCULOSKELETAL: No tenderness, deformities, or effusions noted on gross inspection. EXTREMITIES: No cyanosis, clubbing or edema. SKIN: Inspection of the skin reveals no rashes NEUROLOGIC: Alert and oriented x 4. Strength and sensation to light touch were grossly intact x 4. Course Course Course Narrative: RME; 23 yold male presents to the ED for epigatric pain with nuasea and vomitting since last night. labs and ultrasound of abdomen ordered. Evaluated by ED provider 3:00pm: Charge nurse made awre to bring patient to the ED due to elevated WBC 20,000. Medications Administered Discontinued Medications Generic Name Dose Route Start Last Admin Trade Name Freq PRN Reason Stop Dose Admin Ondansetron HCl 4 mg 10/07/23 21:15 10/07/23 21:21 Ondansetron Odt 4 Mg Tab.Rapdis TRANSLINGU 10/07/23 21:16 4 mg ONCE ONE Administration Medical Decision Making Medical Decision Making [facility] Narrative: This is a 23-year-old male with history and clinical presentation that appears to be consistent with viral gastroenteritis, I have no clinical suspicion for underlying cholecystitis/appendicitis/obstruction and patient also has endorse that there are multiple coworkers that have also been ill with a similar bug. He has been tolerating oral intake since approximately 1500. He will receive sublingual Zofran at this time as well as additional offerings of oral intake. I reviewed all investigations and hematologic indices demonstrate a non infectious reactive leukocytosis likely secondary to patient's experiencing multiple episodes of nausea and vomiting, there is no abdominal symptoms and patient is afebrile. In addition, patient feels much better at this time and has tolerated oral intake. Chemistry indices are grossly within normal limits without evidence of TIFFANI or electrolyte/extensive liver enzyme derangements. Lipase is within normal limits. Viral testing negative for influenza/RSV/COVID-19. Ultrasound negative for evidence to suggest any cholecystitis or intra-abdominal pathology. My interpretation is a patient has experienced a transient gastroenteritis or possible food poisoning, he will be discharged with a script for Zofran as well as dietary considerations for assisting in control of diarrhea and discharged home with instructions to follow-up with his primary care doctor. Differential Diagnosis Differential Diagnoses: The differential diagnosis associated with the presentation includes Please see the discussion above Admission/Observation Consideration of admission/observation: Escalation of care including admission/observation considered Please see the discussion above Lab Data MDM Lab Attestation statement: I reviewed the patient's lab results. Please see the discussion above 10/07/23 13:51 10/07/23 13:51 Labs: Lab Results 10/07/23 Range/Units 13:51 WBC 20.8 H (4.8-10.8) X10*3/uL RBC 5.39 (4.60-5.80) X10*6/uL Hgb 16.1 (14.0-18.0) g/dl Hct 49.6 (42.0-52.0) % MCV 92.0 (80.0-98.0) fL MCH 29.9 (27.0-33.0) pg MCHC 32.5 (31.0-36.0) g/dl RDW 13.3 (11.0-16.0) % Plt Count 248 (160-400) X10*3/uL MPV 10.8 (9.4-12.4) fL Immature Gran % (Auto) 0.4 (0.0-0.4) % Neut % (Auto) 87.1 H (45-73) % Lymph % (Auto) 5.6 L (20-40) % [place] % (Auto) 6.1 (2-11) % Eos % (Auto) 0.6 (0-4) % Baso % (Auto) 0.2 (0-2) % Lymph # (Auto) 1.2 (1.2-4.9) X10*3/uL [place] # (Auto) 1.3 H (0.1-1.2) X10*3/uL Eos # (Auto) 0.1 (0.0-0.4) X10*3/uL Baso # (Auto) 0.1 (0.0-0.2) X10*3/uL Abs Immat Gran (auto) 0.08 H (0.00-0.03) X10*3/uL Absolute Neuts (auto) 18.1 H (2.0-8.3) x10*3/uL Absolute Nucleated RBC 0.000 (0.0-0.012) X10*3/uL Nucleated RBC % (auto) 0.0 (0.0-0.2) /100WBC Sodium 139 (135-145) mmol/L Potassium 4.5 (3.3-5.1) mmol/L Chloride 104 (96-108) mmol/L Carbon Dioxide 28 (22-29) mmol/L Anion Gap 12 (12-20) BUN 10 (9-16) mg/dL Creatinine 0.90 (0.5-1.4) mg/dL Estim Creat Clear Calc 180.8 Estimated GFR > 60 Random Glucose 104 (60-115) mg/dL Calcium 9.8 (8.4-10.2) mg/dL Total Bilirubin 0.4 (0.0-1.0) mg/dL AST 35 (5-37) U/L ALT 56 H (0-40) U/L Alkaline Phosphatase 92 (39-117) U/L Total Protein 8.3 H (6.5-8.0) g/dL Albumin 4.3 (3.5-5.0) g/dL Lipase 18 (8-78) U/L Influenza Type A (PCR) NEGATIVE (Negative) Influenza Type B (PCR) NEGATIVE (Negative) RSV RNA Qual (PCR) NEGATIVE (Negative) SARS-CoV-2 RNA (RT-PCR) NEGATIVE (Negative) Radiology Impression Discussion of test interpretation with radiology: I have reviewed the radiologist's reading. Radiologist Impression: Please see the discussion above External Record Review External record reviewed: Outpatient record, Prior outpatient labs and Prior outpatient radiology Critical Care Time Critical Care Time Critical Care Time: Yes Total Critical Care Time: 30 Attestation: I personally attest to this time spent taking care of the patient. Discharge Plan Discharge Clinical Impression: Gastroenteritis Patient Disposition: Home, Self-Care Instructions: Gastroenteritis (ED), Nutrition Tips for Relief of Diarrhea (ED) Additional Instructions: 1. You have a prescription for antinausea medication and should take advantage of this medication to continue to rehydrate, especially with water. 2. Please follow-up with your primary care doctor. Return to the ER for any worsening symptoms. Prescriptions: New ondansetron 4 mg tablet,disintegrating 8 mg PO Q8H PRN (Reason: nausea and vomiting) 5 Days Qty: 7 0RF No Action albuterol sulfate 90 mcg/actuation HFA aerosol inhaler 2 puff inhalation Q6H PRN (Reason: shortness of breath or wheezing) Qty: 8.5 0RF fluticasone propionate [Flonase Allergy Relief] 50 mcg/actuation spray,suspension 2 spray intranasal DAILY Qty: 16 0RF Rx Instructions: administer into each nostril Referrals: Beto Bragg FNP [Primary Care Provider] - Stand Alone Forms: Work/School Release Interventions: ED Discharge Assessment Last Done: 10/07/23 22:01 Discharge Date/Time: 10/07/23 22:02
[2023-10-07 14:00] LABS: MANUAL DIFF FLAG NO
[2023-10-07 14:04] LABS: Basophils Absolute Auto 0.1 X10*3/uL (0.0-0.2); Basophils Percent Auto 0.2 % (0-2); Eosinophils Absolute Auto 0.1 X10*3/uL (0.0-0.4); Eosinophils Percent Auto 0.6 % (0-4); Hematocrit 49.6 % (42.0-52.0); Hemoglobin 16.1 g/dl (14.0-18.0); Imm Gran Abs Auto 0.08 X10*3/uL (0.00-0.03); Imm Gran Pct Auto 0.4 % (0.0-0.4); Lymphocytes Absolute Auto 1.2 X10*3/uL (1.2-4.9); Lymphocytes Percent Auto 5.6 % (20-40); Mean Corpuscular HGB Conc 32.5 g/dl (31.0-36.0); Mean Corpuscular Hemoglobin 29.9 pg (27.0-33.0); Mean Platelet Volume 10.8 fL (9.4-12.4); Monocytes Absolute Auto 1.3 X10*3/uL (0.1-1.2); Monocytes Percent Auto 6.1 % (2-11); Neutrophils Absolute Auto 18.1 x10*3/uL (2.0-8.3); Neutrophils Percent Auto 87.1 % (45-73); Platelet Count 248 X10*3/uL (160-400); Red Blood Count 5.39 X10*6/uL (4.60-5.80); Red Cell Distribution Width 13.3 % (11.0-16.0); White Blood Count 20.8 X10*3/uL (4.8-10.8)
[2023-10-07 14:24] LABS: Alanine Aminotransferase 56 U/L (0-40); Albumin Level 4.3 g/dL (3.5-5.0); Alkaline Phosphatase 92 U/L (39-117); Anion Gap 12 (12-20); Aspartate Amino Transferase 35 U/L (5-37); Bilirubin Total 0.4 mg/dL (0.0-1.0); Blood Urea Nitrogen 10 mg/dL (9-16); Calcium 9.8 mg/dL (8.4-10.2); Carbon Dioxide 28 mmol/L (22-29); Chloride 104 mmol/L (96-108); Creatinine Clr Calc Pharmacy 180.8; Estimated Glomerular Filt Rate > 60; Glucose Random 104 mg/dL (60-115); Lipase 18 U/L (8-78); Potassium 4.5 mmol/L (3.3-5.1); Sodium 139 mmol/L (135-145); Total Protein 8.3 g/dL (6.5-8.0)
[2023-10-07 15:20] LABS: Influenza A PCR NEGATIVE (Negative); Influenza B PCR NEGATIVE (Negative); Resp Syncy Virus RNA Qual PCR NEGATIVE (Negative); SARS COV2 PCR INHOUSE NEGATIVE (Negative)
[2023-10-07] MEDS: Ondansetron ODT 4 MG TAB.RAPDIS TRANSLINGU (21:21)
[2023-10-07 21:39] VITALS: BP 131/81; PULSE 78; RESP 15; TEMP 37; O2SAT 97
== END 2023-10-07 22:02 | disposition home or self-care (01) ==
PROVIDERS: Physician Assistant; Emergency Provider Student in an Organized Health Care Education/Training Program; PCP Nurse Practitioner Primary Care
DX: K52.9 Noninfective gastroenteritis and colitis, unspecified (principal); Z11.52 Encounter for screening for COVID-19; Z20.828 Contact with and (suspected) exposure to other viral communicable diseases
CPT/HCPCS: 0241U; 76705; 80053; 83690; 85025; 99283; 99284

== ENCOUNTER 2024-02-19 15:34 | Emergency (ER) | payer OTHER, SELFPAY ==
[2024-02-19 15:44] VITALS: BP 148/88; PULSE 114; RESP 18; TEMP 37.3; O2SAT 93; BMI 37.6
--- NOTE | 2024-02-19 15:54 | ED.DENTAL ---
HPI - Dental/Oral General Chief complaint: Dental/Oral Stated complaint: tooth/jaw pain Time Seen by Provider: 02/19/24 15:53 Source: patient Mode of arrival: ambulatory Limitations: no limitations History of Present Illness ED Provider: naz ALAMO Narrative: Patient is a 23-year-old male presenting to the emergency department with complaint of left lower jaw pain and swelling since Saturday. Saw his dentist yesterday and was started on amoxicillin 500mg TID. He has taken a total of 4 doses so far. Has been using Tylenol and ibuprofen with little relief of pain. Has an appointment on the for extraction. Denies fevers. Denies discharge or drainage from the area. Denies any difficulty opening or closing jaw. Denies any difficulty swallowing. MD Complaint: tooth pain Teeth map: 1. Fractured tooth with caries Onset (ago): day(s) Duration: constant Severity: severe Relieving factors: nothing Context: history of dental caries and poor dental care Treatment prior to arrival: other (antibiotics) Related Data Previous Rx's ?Medication ?Instructions ?Recorded albuterol sulfate 90 mcg/actuation 2 puff inhalation Q6H PRN 06/14/23 aerosol inhaler shortness of breath or wheezing #8.5 grams fluticasone propionate 50 2 spray intranasal DAILY #16 grams 06/14/23 mcg/actuation nasal spray,suspension (Flonase Allergy Relief) ondansetron 4 mg disintegrating 8 mg (2 x 4 mg) PO Q8H PRN nausea 10/07/23 tablet and vomiting 5 days #7 tabs amoxicillin 875 mg-potassium 1 tab PO TID 7 days #21 tabs 02/19/24 clavulanate 125 mg tablet chlorhexidine gluconate 0.12 % 15 ml buccal BID #118 mL 02/19/24 mouthwash (Peridex) lidocaine HCl 2 % mucosal solution 1 appl mucous membrane QID PRN 02/19/24 (Lidocaine Viscous) pain #100 mL Allergies Allergy/AdvReac Type Severity Reaction Status Date / Time No Known Allergies Allergy Verified 02/19/24 15:48 [No Known Allergies*] Review of Systems Review of Systems: As per HPI Yes all other systems are reviewed and are negative Constitutional: Constitutional: Reports as per HPI PMFSH Past Medical History Medical History Nocturnal cough with wheeze Encounter for routine adult physical exam with abnormal findings Asthma Family History Family History Father Diabetes type 2, controlled Mother Diabetes type 2, controlled Social History Social History Housing: Apartment Alcohol intake: never Patient Tobacco Use Status: Current everyday Tobacco user e-Cigarette/Vaping Use: Never Used Substance Use Type: Marijuana Advance Directives: No Advance Directives Information Provided: No service: No Current occupational status: unemployed Cognitive needs: No Hearing needs: No Vision needs: No Physical Exam Vital Signs: Vital Signs: Last Vital Signs Temp 99.1 F 02/19/24 16:05 Pulse 114 H 02/19/24 16:05 Resp 18 02/19/24 16:05 BP 148/88 H 02/19/24 16:05 Pulse Ox 93 02/19/24 16:05 O2 Del Method Room Air 02/19/24 16:05 BMI result Body Mass Index 37.6 Vital signs have been reviewed and appear to be correct. Blood pressure elevated. Heart rate mildly tachycardic. Respiratory rate normal. Temperature normal. Oxygen saturation normal. Const: General: cooperative, healthy appearing and no acute distress Orientation/consciousness: oriented to person, oriented to place, oriented to time and patient oriented x3 Limitations: no limitations HEENT: Head: Yes normocephalic and Yes atraumatic Ears: external ears normal General nose exam: Normal external nose present Face and sinus: Yes face symmetric Mouth: Normal oral and palatal mucosa present, lip normal, tongue normal, Normal salivary glands and ducts present, oropharynx normal, moist mucous membranes, no audible dysphonia, no drooling, no muffled voice, no trismus and No restricted motion Teeth and gingiva: caries and poor dentition Teeth image: 1. Fractured tooth with carries, associated gingival erythema and edema, no abscess Throat: Yes uvula midline Eyes: Pupils: Equal, round and reactive pupils present Neck: Neck: Yes normal visual inspection and Yes supple Lymphatic: lymphadenopathy left submandibular Resp: Effort & Inspection: normal respiratory effort and able to speak in complete sentences Auscultation: clear to auscultation bilaterally Cardio: Rate: regular rate Rhythm: regular rhythm Heart sounds: S1 normal heart sound present and S2 normal heart sound present GI: Palpation (GI): Soft to palpation and nontender Auscultation: normoactive bowel sounds : General: Yes no CVA tenderness Back/Spine/Pelvis: Back: no CVA tenderness Skin: General skin exam: elasticity normal and turgor normal Neuro: General: oriented to person, oriented to place, oriented to time, patient oriented x3, moves all extremities, no focal motor deficits and CN's II-XI intact bilaterally Cranial nerves: Yes Equal, round and reactive pupils present Cognition (Neuro): normal cognition Extrem: General: Yes full ROM, Yes no pedal edema and Yes no calf tenderness Psych: Mental Status: mental status grossly normal Affect: normal affect Thought process: Normal thought process present Medical Decision Making Medical Decision Making [facility] Narrative: Patient is a 23-year-old male presenting to the emergency department with complaint of left lower jaw pain and swelling since Saturday. On exam patient is awake, A+Ox3, BP elevated, HR slightly tachycardic, VS otherwise WNL, afebrile, normal neurological exam without focal deficits, physical exam findings as above. Given reported symptoms and physical exam findings, initial differential includes dental infection, dental abscess. Do not suspect parotitis or Yves's angina. Patient has no difficulty swallowing, no trismus. Will change amoxicillin to augmenting, add peridex mouthwash and prescribe viscous lidocaine. Instructed patient to keep follow up appointment with dentist. Return precautions discussed. Patient verbalized understanding of and agreement with plan. Differential Diagnosis Differential Diagnoses: The differential diagnosis associated with the presentation includes As per [facility] External Record Review External record reviewed: Inpatient record, Office record and Outpatient record Prescription Management I considered prescription management with: Pain Medication and Antibiotic Discharge Plan Discharge Clinical Impression: Dental infection Patient Disposition: Home, Self-Care Instructions: Toothache (ED) Additional Instructions: You were evaluated in the emergency department today for dental pain. You are being prescribed a new antibiotic, amoxicillin-potassium clavulanate (Augmentin). Please begin taking this immediately and stop taking the antibiotic prescribed by your dentist. We recommend that you take 650 mg of Tylenol or 600 mg of ibuprofen every 6 hours. If necessary, we recommend alternating these medications every 3 hours. For example, at 9:00 a.m. take Tylenol, then at noon take ibuprofen, then at 3:00 p.m. take Tylenol, then at 6:00 p.m. take ibuprofen, etc.. You are being prescribed a short course of oxycodone for severe pain not improved with Tylenol or ibuprofen. You should gargle with warm salt water several times daily. Please keep the scheduled follow-up appointment with your dentist. Return to the emergency department if you develop increased swelling, fever, discharge or drainage, difficulty swallowing, difficulty breathing, difficulty opening or closing your jaw or any other concerning symptoms. Prescriptions: New amoxicillin-pot clavulanate 875-125 mg tablet 1 tab PO TID 7 Days Qty: 21 0RF lidocaine HCl [Lidocaine Viscous] 2 % solution 1 appl mucous membrane QID PRN (Reason: pain) Qty: 100 0RF chlorhexidine gluconate [Peridex] 0.12 % mouthwash 15 ml buccal BID Qty: 118 0RF No Action ondansetron 4 mg tablet,disintegrating 8 mg PO Q8H PRN (Reason: nausea and vomiting) 5 Days Qty: 7 0RF albuterol sulfate 90 mcg/actuation HFA aerosol inhaler 2 puff inhalation Q6H PRN (Reason: shortness of breath or wheezing) Qty: 8.5 0RF fluticasone propionate [Flonase Allergy Relief] 50 mcg/actuation spray,suspension 2 spray intranasal DAILY Qty: 16 0RF Rx Instructions: administer into each nostril Interventions: ED Discharge Assessment Last Done: 02/19/24 16:05 Discharge Date/Time: 02/19/24 16:22 Print Language: Bengali
[2024-02-19 16:05] VITALS: BP 148/88; PULSE 114; RESP 18; TEMP 37.3; O2SAT 93
== END 2024-02-19 16:22 | disposition home or self-care (01) ==
PROVIDERS: Emergency Provider Emergency Medicine; PCP Nurse Practitioner Primary Care
DX: K04.7 Periapical abscess without sinus (principal); K02.9 Dental caries, unspecified; K08.89 Other specified disorders of teeth and supporting structures; R00.0 Tachycardia, unspecified; F17.200 Nicotine dependence, unspecified, uncomplicated; F12.90 Cannabis use, unspecified, uncomplicated; Z79.899 Other long term (current) drug therapy
CPT/HCPCS: 99282; 99283

== ENCOUNTER 2024-07-01 11:10 | Emergency (ER) | payer SELFPAY ==
--- NOTE | ~2024-07-01 | US_ITS ---
EXAMINATION: US ABDOMEN LIMITED CLINICAL INFORMATION: Right upper quadrant tenderness. Vomiting.. COMPARISON: Ultrasound dated October 07, 2023. TECHNIQUE: Real-time imaging of the right upper quadrant abdominal viscera using grayscale and color Doppler technique. FINDINGS: PANCREAS: No peripancreatic fluid collections. LIVER: Liver measures 19 cm. Increased echotexture. No solid or cystic lesion. Main portal vein is patent with normal hepatopedal flow direction. No intrahepatic biliary ductal dilatation. GALLBLADDER: Fluid-filled. No pericholecystic fluid collection or gallbladder wall thickening. COMMON BILE DUCT: 3 mm. RIGHT KIDNEY: 13 cm. Normal echotexture. Renal cortical thickness is normal. There is a 3.7 cm anechoic lesion without nodular component there is a thin septation. No flow on color Doppler interrogation. No hydronephrosis. Normal flow on color Doppler interrogation of the renal hilum. FREE FLUID: None. US/US abdomen limited IMPRESSION: Hepatomegaly and steatosis. No cholelithiasis. 3.7 cm septated cyst, right kidney. Electronically signed by: Abe Brito MD 07/01/2024 02:30 PM EST
[2024-07-01 11:20] VITALS: BP 131/86; PULSE 103; RESP 20; TEMP 35.3; O2SAT 94; BMI 37.8
--- NOTE | 2024-07-01 11:21 | ED.NAVMDI ---
HPI - Nausea/Vomiting/Diarrhea General Chief complaint: Abdominal Pain Stated complaint: vomiting Time Seen by Provider: 07/01/24 21:07 Source: patient Limitations: no limitations History of Present Illness ED Provider: Dr. Silas Man HPI Narrative: 23-year-old male patient with a history of asthma, obstructive sleep apnea who presents emergency department for evaluation of 2 days of nausea, vomiting, diarrhea, dizziness and weakness. Patient states he was had 5 episodes of vomiting with a small amount of blood in his emesis and 5 episodes of diarrhea today. He states that while he was in the emergency department he also had 3 more episodes of vomiting. Patient states that he was feeling weak and dizzy. He denied fever, chills, rhinorrhea, sore throat, cough, chest pain, shortness of breath. Related Data Previous Rx's ?Medication ?Instructions ?Recorded albuterol sulfate 90 mcg/actuation 2 puff inhalation Q6H PRN 06/14/23 aerosol inhaler shortness of breath or wheezing #8.5 grams fluticasone propionate 50 2 spray intranasal DAILY #16 grams 06/14/23 mcg/actuation nasal spray,suspension (Flonase Allergy Relief) ondansetron 4 mg disintegrating 8 mg (2 x 4 mg) PO Q8H PRN nausea 10/07/23 tablet and vomiting 5 days #7 tabs amoxicillin 875 mg-potassium 1 tab PO TID 7 days #21 tabs 02/19/24 clavulanate 125 mg tablet chlorhexidine gluconate 0.12 % 15 ml buccal BID #118 mL 02/19/24 mouthwash (Peridex) lidocaine HCl 2 % mucosal solution 1 appl mucous membrane QID PRN 02/19/24 (Lidocaine Viscous) pain #100 mL ondansetron 4 mg disintegrating 4 mg PO Q6-8H PRN nausea and 07/01/24 tablet vomiting #14 tabs Allergies Allergy/AdvReac Type Severity Reaction Status Date / Time No Known Allergies Allergy Verified 07/01/24 11:23 [No Known Allergies*] Review of Systems Review of Systems: Yes all other systems are reviewed and are negative PMFSH Past Medical History [facility], [facility] Narrative: Social history: Patient denies tobacco, alcohol use. He states that he occasionally smokes marijuana. Medical History Nocturnal cough with wheeze Encounter for routine adult physical exam with abnormal findings Asthma Family History Family History Father Diabetes type 2, controlled Mother Diabetes type 2, controlled Social History Social History Housing: Apartment Alcohol intake: never Patient Tobacco Use Status: Current everyday Tobacco user Smoked in Last 30 Days: No e-Cigarette/Vaping Use: Never Used Use of substances other than those prescribed or required for medical reasons: No Substance Use Type: Marijuana Advance Directives: No Advance Directives Information Provided: No Do you have a plan to hurt others: No Plan service: No Current occupational status: unemployed Cognitive needs: No Hearing needs: No Vision needs: No Physical Exam Vital Signs: Vital Signs: Last Vital Signs Temp 98.4 F 07/01/24 23:21 Pulse 85 07/01/24 23:21 Resp 16 07/01/24 23:21 BP 122/67 07/01/24 23:21 Pulse Ox 98 07/01/24 23:21 O2 Del Method Room Air 07/01/24 23:21 BMI result Body Mass Index 37.8 Vital signs were normal Exam: General: Awake, alert in no distress Head: Normocephalic, atraumatic EENT: PERRL, Lids normal, sclera normal, conjunctiva normal, nose normal , ears normal, throat without erythema or exudates Neck: Supple, no adenopathy Lung: breath sounds symmetric, no wheezing, rales or rhonchi Chest: symmetric movement, nontender Heart: regular rate and rhythm, normal S1, S2 no murmurs or rubs Abdomen: soft, mild to moderate right upper quadrant right lower quadrant tenderness , nondistended, normal bowel sounds Back: no vertebral tenderness, no CVAT Extremities: no deformities, moves all extremities symmetrically Neuro: Awake, alert, oriented, normal speech, cranial nerves intact, moves all extremities symmetrically Psych: Pleasant, cooperative Course Course Course Narrative: This is a Rapid Medical Examination (RME) performed by Luc Worley PA-C in triage. Full HPI, ROS, assessment and treatment plan per primary provider in the Main ED. 23 yo male presents to the ER for evaluation of recurrent vomiting (7x), watery diarrhea and right sided abdominal pain that comes and goes. Symptoms started yesterday and continued today. No known sick contacts. On exam he has RUQ tenderness and guarding. normal active bowel sounds. Plan: labs, RUQ U/S Medications Administered Discontinued Medications Generic Name Dose Route Start Last Admin Trade Name Elver PRN Reason Stop Dose Admin Sodium Chloride 1,000 mls @ 999 mls/hr 07/01/24 21:21 07/01/24 21:38 Ns IV 07/01/24 22:21 999 mls/hr .Q1H1M STA Administration Magnesium Sulfate 2 gm in 50 mls @ 25 mls/hr 07/01/24 21:21 07/01/24 21:36 Magnesium Sulfate/H2o IV 07/01/24 23:20 25 mls/hr ONCE ONE Administration Ketorolac Tromethamine 15 mg 07/01/24 21:21 07/01/24 21:35 Ketorolac Tromethamine 15 Mg/Ml Vial IVPUSH 07/01/24 21:22 15 mg ONCE STA Administration Ondansetron HCl 4 mg 07/01/24 21:21 07/01/24 21:36 Ondansetron Hcl 4 Mg/2 Ml Vial IVPUSH 07/01/24 21:22 4 mg ONCE ONE Administration Ondansetron HCl 4 mg 07/01/24 21:49 07/01/24 21:50 Ondansetron Odt 4 Mg Tab.Rapdis TRANSLINGU 07/01/24 21:50 Not Given ONCE ONE Medical Decision Making Medical Decision Making MDM Narrative: 23-year-old male patient with a history of asthma, obstructive sleep apnea who presents emergency department for evaluation of 2 days of nausea, vomiting, diarrhea, dizziness and weakness. Vital signs were unremarkable. Physical examination revealed right-sided abdominal tenderness otherwise was unremarkable Differential diagnosis: ?Includes but is not limited to viral syndrome, anemia, electrolyte abnormalities, dehydration Course: 23:41 My interpretation patient's laboratory evaluation as follows: WBC was elevated 20,400. Glucose elevated 122. ALT elevated 49. Magnesium low 1.4. Urinalysis negative. Patient's abdominal ultrasound did not reveal a clear cause for the patient's pain, he does have a 3.7 septated right renal cyst. This is an incidental finding, I will refer the patient will be referred to our urologist for follow-up. Patient's presentation is consistent with an acute viral syndrome with hypomagnesemia and dehydration. The patient was treated with normal saline IV x1 L, magnesium 2 g IV, Imodium 4 mg orally and no Zofran 4 mg IV. The patient felt significantly better after the above treatment. Patient was prescribed Zofran 4 mg ODT Q 6-8 hours as needed for nausea or vomiting. He was advised to take ibuprofen and Imodium. He was given printed and verbal instructions and discharged home. Admission/Observation Consideration of admission/observation: Escalation of care including admission/observation considered (Yes) Lab Data [facility] Lab Attestation statement: I reviewed the patient's lab results. 07/01/24 13:04 07/01/24 13:04 Labs: Lab Results 07/01/24 07/01/24 Range/Units 13:04 13:16 WBC 20.4 H (4.8-10.8) X10*3/uL RBC 5.29 (4.60-5.80) X10*6/uL Hgb 16.0 (14.0-18.0) g/dl Hct 48.9 (42.0-52.0) % MCV 92.4 (80.0-98.0) fL MCH 30.2 (27.0-33.0) pg MCHC 32.7 (31.0-36.0) g/dl RDW 13.3 (11.0-16.0) % Plt Count 230 (160-400) X10*3/uL MPV 11.0 (9.4-12.4) fL Immature Gran % (Auto) 0.3 (0.0-0.4) % Neut % (Auto) 88.2 H (45-73) % Lymph % (Auto) 3.2 L (20-40) % [place] % (Auto) 7.4 (2-11) % Eos % (Auto) 0.7 (0-4) % Baso % (Auto) 0.2 (0-2) % Lymph # (Auto) 0.7 L (1.2-4.9) X10*3/uL [place] # (Auto) 1.5 H (0.1-1.2) X10*3/uL Eos # (Auto) 0.2 (0.0-0.4) X10*3/uL Baso # (Auto) 0.1 (0.0-0.2) X10*3/uL Abs Immat Gran (auto) 0.06 H (0.00-0.03) X10*3/uL Absolute Neuts (auto) 17.9 H (2.0-8.3) x10*3/uL Absolute Nucleated RBC 0.000 (0.0-0.012) X10*3/uL Nucleated RBC % (auto) 0.0 (0.0-0.2) /100WBC Smear Tech's Comments VERIFIED Sodium 140 (135-145) mmol/L Potassium 4.5 (3.3-5.1) mmol/L Chloride 106 (96-108) mmol/L Carbon Dioxide 28 (22-29) mmol/L Anion Gap 11 L (12-20) BUN 10 (9-16) mg/dL Creatinine 0.82 (0.5-1.4) mg/dL Estim Creat Clear Calc 201.9 Estimated GFR > 60 Random Glucose 122 H (60-115) mg/dL Calcium 9.9 (8.4-10.2) mg/dL Magnesium 1.4 L* (1.6-2.6) mg/dL Total Bilirubin 0.4 (0.0-1.0) mg/dL Direct Bilirubin 0.2 (0.0-0.5) mg/dL AST 32 (5-37) U/L ALT 49 H (0-40) U/L Alkaline Phosphatase 83 (39-117) U/L Total Protein 8.2 H (6.5-8.0) g/dL Albumin 4.2 (3.5-5.0) g/dL Lipase 18 (8-78) U/L Urine Color Yellow Urine Appearance Clear Urine pH 5.5 (5.0-9.0) Ur Specific [place] >= 1.030 H (1.005-1.025) Urine Protein 30 (1+) H (Neg-Trace) mg/dL Urine Glucose (UA) Negative (Negative) mg/dL Urine Ketones Trace (Negative) mg/dL Urine Blood Negative (Negative) Urine Nitrite Negative (Negative) Ur Leukocyte Esterase Negative (Negative) Urine RBC 0-2 (0-2) /HPF Urine WBC 0-5 (0-5) /HPF Ur Squamous Epith Cells 0-2 (0-2) /HPF Urine Bacteria None Seen (None Seen) Hyaline Casts 0-2 (0-2) /LPF Radiology Impression Discussion of test interpretation with radiology: I have reviewed the radiologist's reading. Radiologist Impression: US abdomen limited IMPRESSION: Hepatomegaly and steatosis. No cholelithiasis. 3.7 cm septated cyst, right kidney. Electronically signed by: Abe Brito MD 07/01/2024 02:30 PM Prescription Management I considered prescription management with: Other (Antiemetic: Zofran ODT) Discharge Plan Discharge Clinical Impression: Viral syndrome, Vomiting, Diarrhea, Acute dehydration, Renal cyst Patient Disposition: Home, Self-Care Instructions: Viral Syndrome (ED) Additional Instructions: Your blood work did reveal an elevated white blood cell count, this is consistent with a viral infection. You also had a low magnesium. Your symptoms are consistent with a viral infection. Viral infections can last days to weeks. Your body will fight off this infection. Take Zofran ODT 4 mg pills, 1 pill dissolved in your mouth every 8 hours as needed for nausea and vomiting. For diarrhea I want you to take Imodium 2 mg pills. ?Take 2 pills after the 1st loose, diarrheal stool then 1 pill after each loose, diarrheal stool up to 8 pills per day. ?This usually stops diarrhea within 24 hours. Take ibuprofen 200 mg pills, 2 pills every 6 hours as needed for pain or fever. Follow-up with your doctor in 2 days. Please return to the emergency department if your symptoms get worse or if you develop any symptoms that are concerning to you. Please see the work note Your ultrasound did reveal an incidental finding, you have a 3.7 cm septated renal cyst on the right kidney. I want you to follow-up with our on-call urologist for re-evaluation in 2-4 weeks US abdomen limited IMPRESSION: Hepatomegaly and steatosis. No cholelithiasis. 3.7 cm septated cyst, right kidney. Electronically signed by: Abe Brito MD 07/01/2024 02:30 PM Prescriptions: New ondansetron 4 mg tablet,disintegrating 4 mg PO Q6-8H PRN (Reason: nausea and vomiting) Qty: 14 0RF No Action ondansetron 4 mg tablet,disintegrating 8 mg PO Q8H PRN (Reason: nausea and vomiting) 5 Days Qty: 7 0RF amoxicillin-pot clavulanate 875-125 mg tablet 1 tab PO TID 7 Days Qty: 21 0RF lidocaine HCl [Lidocaine Viscous] 2 % solution 1 appl mucous membrane QID PRN (Reason: pain) Qty: 100 0RF chlorhexidine gluconate [Peridex] 0.12 % mouthwash 15 ml buccal BID Qty: 118 0RF albuterol sulfate 90 mcg/actuation HFA aerosol inhaler 2 puff inhalation Q6H PRN (Reason: shortness of breath or wheezing) Qty: 8.5 0RF fluticasone propionate [Flonase Allergy Relief] 50 mcg/actuation spray,suspension 2 spray intranasal DAILY Qty: 16 0RF Rx Instructions: administer into each nostril Referrals: Sally Webster MD [Physician] - (Incidental 3.7 cm right septated renal cyst, please follow-up US abdomen limited IMPRESSION: Hepatomegaly and steatosis. No cholelithiasis. 3.7 cm septated cyst, right kidney. Electronically signed by: Abe Brito MD 07/01/2024 02:30 PM ) Stand Alone Forms: Work/School Release Print Language: Croatian
[2024-07-01 13:11] LABS: Basophils Absolute Auto 0.1 X10*3/uL (0.0-0.2); Basophils Percent Auto 0.2 % (0-2); Eosinophils Absolute Auto 0.2 X10*3/uL (0.0-0.4); Eosinophils Percent Auto 0.7 % (0-4); Hematocrit 48.9 % (42.0-52.0); Imm Gran Abs Auto 0.06 X10*3/uL (0.00-0.03); Imm Gran Pct Auto 0.3 % (0.0-0.4); Lymphocytes Absolute Auto 0.7 X10*3/uL (1.2-4.9); Lymphocytes Percent Auto 3.2 % (20-40); MANUAL DIFF FLAG SCAN; Mean Corpuscular HGB Conc 32.7 g/dl (31.0-36.0); Mean Corpuscular Hemoglobin 30.2 pg (27.0-33.0); Mean Corpuscular Volume 92.4 fL (80.0-98.0); Monocytes Absolute Auto 1.5 X10*3/uL (0.1-1.2); Monocytes Percent Auto 7.4 % (2-11); Neutrophils Absolute Auto 17.9 x10*3/uL (2.0-8.3); Neutrophils Percent Auto 88.2 % (45-73); Platelet Count 230 X10*3/uL (160-400); Red Blood Count 5.29 X10*6/uL (4.60-5.80); Red Cell Distribution Width 13.3 % (11.0-16.0); SCAN SMEAR FLAG 1; White Blood Count 20.4 X10*3/uL (4.8-10.8)
[2024-07-01 13:26] LABS: Appearance Urine Clear; Color Urine Yellow; Glucose Urine UA Negative (Negative); Leukocyte Esterase Urine Negative (Negative); Nitrite Urine Negative (Negative); PH 5.5 (5.0-9.0); Specific Gravity - Urine >= 1.030 (1.005-1.025); UMIC TRIGGER UACC YES; Urine Blood Negative (Negative); Urine Ketones Trace mg/dL (Negative); Urine Protein 30 (1+) mg/dL (Neg-Trace)
[2024-07-01 13:29] LABS: Alanine Aminotransferase 49 U/L (0-40); Albumin Level 4.2 g/dL (3.5-5.0); Alkaline Phosphatase 83 U/L (39-117); Anion Gap 11 (12-20); Aspartate Amino Transferase 32 U/L (5-37); Bilirubin Direct 0.2 mg/dL (0.0-0.5); Bilirubin Total 0.4 mg/dL (0.0-1.0); Blood Urea Nitrogen 10 mg/dL (9-16); Calcium 9.9 mg/dL (8.4-10.2); Carbon Dioxide 28 mmol/L (22-29); Chloride 106 mmol/L (96-108); Creatinine Clr Calc Pharmacy 201.9; Estimated Glomerular Filt Rate > 60; Glucose Random 122 mg/dL (60-115); Lipase 18 U/L (8-78); Magnesium 1.4 mg/dL (1.6-2.6); Potassium 4.5 mmol/L (3.3-5.1); Sodium 140 mmol/L (135-145); Total Protein 8.2 g/dL (6.5-8.0)
[2024-07-01 13:31] LABS: SLIDE REVIEW VERIFIED
[2024-07-01 13:37] LABS: Bacteria Urine None Seen (None Seen); Hyaline Casts Urine 0-2 /LPF (0-2); RBC Urine 0-2 /HPF (0-2); Squamous Epithelial Cell Urine 0-2 /HPF (0-2); WBC Urine 0-5 /HPF (0-5)
[2024-07-01 21:01] VITALS: BP 129/77; PULSE 82; RESP 18; TEMP 36.9; O2SAT 94
[2024-07-01] MEDS: Ketorolac Tromethamine 15 MG/ML VIAL IVPUSH (21:35)
[2024-07-01] MEDS: Magnesium Sulfate/H2O 2 GM/50 ML PIGGYBACK IV (21:36)
[2024-07-01] MEDS: ondansetron HCL 4 MG/2 ML VIAL IVPUSH (21:36)
[2024-07-01] MEDS: 0.9 % Sodium Chloride 1,000 ML 999 ML IV (21:38)
--- NOTE | 2024-07-01 22:47 | PC.NURSE ---
Iv started by ALBERTINA Becker and medicated, pt resting in stretcher, no sign of distress.
[2024-07-01 23:21] VITALS: BP 122/67; PULSE 85; RESP 16; TEMP 36.9; O2SAT 98
[2024-07-01] MEDS: Loperamide HCl 2 MG CAPSULE 4 MG PO (23:45)
--- NOTE | 2024-07-01 23:54 | PC.NURSE ---
medicated per mar, Iv removed, no sign of distress upon discharge.
[2024-07-02 00:06] VITALS: BP 122/67; PULSE 85; RESP 16; TEMP 36.9; O2SAT 98
== END 2024-07-02 00:08 | disposition home or self-care (01) ==
PROVIDERS: Physician Assistant; Emergency Provider Emergency Medicine Emergency Medical Services
DX: B34.9 Viral infection, unspecified (principal); R11.2 Nausea with vomiting, unspecified; R19.7 Diarrhea, unspecified; E86.0 Dehydration; N28.1 Cyst of kidney, acquired; E83.42 Hypomagnesemia; J45.909 Unspecified asthma, uncomplicated; F17.200 Nicotine dependence, unspecified, uncomplicated
CPT/HCPCS: 36415; 76705; 80048; 80076; 81001; 83690; 83735; 85025; 96365; 96366; 96375; 99285; J1885; J2405; J3475

== ENCOUNTER → 2024-07-01 11:23 | Outpatient (BNV) | payer OTHER, SELFPAY | PROVIDERS: Visit Provider Radiology Diagnostic Radiology | DX: R11.10 Vomiting, unspecified (principal) | CPT/HCPCS: 76705 ==